=== PATIENT | male | born 1945 | race Caucasian/White ===

== ENCOUNTER → 2018-09-23 | Outpatient (CLI) | payer MEDICARE, BC ==
--- NOTE | 2018-09-23 16:24 | CT ---
EXAMINATION TYPE: CT abdomen pelvis wo con DATE OF EXAM: 09/23/2018 COMPARISON: None HISTORY: Hematuria today without other symptoms CT DLP: 660.9 mGycm Automated exposure control for dose reduction was used. TECHNIQUE: Helical acquisition of images was performed from the lung bases through the pelvis. FINDINGS: Lack of intravenous and oral contrast limit evaluation of the hollow and solid viscera. LUNG BASES: Left basilar calcified pleural plaque is seen. LIVER/GB: Unremarkable unenhanced morphology. The bladder is contracted with no cholelithiasis. PANCREAS: No significant abnormality is seen. SPLEEN: No significant abnormality is seen. ADRENALS: No significant abnormality is seen. KIDNEYS: There is an obstructing left ureteropelvic junction 5 mm calculus resulting in minimal left hydronephrosis. There are nonobstructing 3 mm calculi within the left midpole (2 in number. On the ri ght there is an obstructing 2 mm right upper pole calculus and 1 mm right midpole calculus. 2 small t o accurately characterize exophytic probable right renal cyst is seen. FREE AIR: No free air is visualized ADENOPATHY: No greater than 1 cm short axis lymph nodes are seen within the abdomen or pelvis. REPRODUCTIVE ORGANS: Prostate gland is heterogenous containing central zone calcifications. URINARY BLADDER: No calculi within the decompressed urinary bladder. OSSEOUS STRUCTURES: Multilevel degenerative changes of the spine are mild. BOWEL: No dilated large or small bowel. Appendix is air-filled and within normal limits. OTHER: Moderate atherosclerosis is noted of the abdominal aorta and its branches. IMPRESSION: 5 MM OBSTRUCTING CALCULUS AT THE LEFT URETEROPELVIC JUNCTION CREATING MINIMAL LEFT HYDRONEPHROSIS. BI LATERAL NONOBSTRUCTING CALCULI ARE ALSO SEEN DESCRIBED ABOVE.
== END ==
LOC: RADCTMAIN 15:44
PROVIDERS: ATTEND Family Medicine
DX: N13.5 Crossing vessel and stricture of ureter without hydronephrosis (principal)
CPT/HCPCS: 74176

== ENCOUNTER → 2019-04-18 | Outpatient (CLI) | payer MEDICARE, BC ==
[2019-04-18 10:27] LABS: Anion Gap 8 mmol/L; Blood Urea Nitrogen 24 mg/dL (9-20); Carbon Dioxide 26 mmol/L (22-30); Chloride 106 mmol/L (98-107); Potassium 4.2 mmol/L (3.5-5.1); Sodium 140 mmol/L (137-145)
[2019-04-18 10:36] LABS: HCT 42.3 % (39.0-53.0); HGB 13.6 gm/dL (13.0-17.5); MCH 29.3 pg (25.0-35.0); MCHC 32.2 g/dL (31.0-37.0); Mean Platelet Volume 8.5; Platelet Count 149 k/uL (150-450); RBC 4.65 m/uL (4.30-5.90); RDW 14.4 % (11.5-15.5); WBC 4.8 k/uL (3.8-10.6)
== END ==
LOC: LABPAT 09:08
PROVIDERS: ATTEND Internal Medicine Interventional Cardiology
DX: Z01.812 Encounter for preprocedural laboratory examination (principal); I25.10 Atherosclerotic heart disease of native coronary artery without angina pectoris
CPT/HCPCS: 80051; 82565; 84520; 85027

== ENCOUNTER → 2019-05-05 | Day surgery (SDC) | payer MEDICARE, BC ==
[2019-04-26 12:23] VITALS: BMI 28.7
[~2019-05-05] MED LIST: ALPRAZolam 0.25 MG TAB PO PRN; ASPIRIN 325 MG TAB PO ONE; BENZOCAINE SPRAY 1 CAN MUCOUS MEM ONE; IOPAMIDOL-370 125ML BTL INJ ONE; IV FLUID CONTINUATION 1,000 ML IV ONE; LIDOCAINE 1% INJ 10MG/ML (20 ML MDV) SQ ONE; MIDAZOLAM (PF) 2 MG/2 ML VIAL IV ONE; SODIUM CHLORIDE 0.9% 1,000 ML IV SCH; SODIUM CHLORIDE 0.9% 1,000 ML in EMPTY BAG 1 BAG IV ONE; fentaNYL (PF) 50 MCG/ML 2 ML AMP ONE
[2019-05-05 06:56] VITALS: TEMP 97.8
[2019-05-05 07:40] VITALS: RESP 14
[2019-05-05] MEDS: fentaNYL (PF) 50 MCG/ML 2 ML AMP IV ONE ×2 (07:49→07:53)
[2019-05-05] MEDS: MIDAZOLAM (PF) 2 MG/2 ML VIAL IV ONE ×2 (07:53→07:58)
[2019-05-05] MEDS: VERAPAMIL SYRINGE (5 MG/10 ML) INTRAARTER ONE ×2 (08:42→08:55)
--- NOTE | 2019-05-05 09:38 | ECHOT ---
TRANSESOPHAGEAL ECHOCARDIOGRAM DATE OF SERVICE: 05/05/2019 PERFORMING PHYSICIAN: Erick Wiseman MD. PROCEDURE PERFORMED: Transesophageal echocardiogram. INDICATION: Mitral regurgitation. PROCEDURE DESCRIPTION: After obtaining an informed consent, explaining the procedure, benefits, risks, complications and alternatives, the patient was brought to the transesophageal echocardiogram suite. A pulse oximetry and heart rate monitors were attached to the patient prior to the procedure. The patient's throat was sprayed using lidocaine locally. Following that, the patient was turned into left lateral position. A bite guard was placed and the patient was then sedated with the above doses of Versed and fentanyl in divided doses. Following that, the transesophageal echocardiogram probe was advanced through the bite guard into the mid esophagus where 2-D echocardiogram images as well as color Doppler images of various cardiac structures were obtained. We evaluated the interatrial septum using 2-D echocardiogram, color Doppler, and contrast study. The procedure was completed. There were no complications. FINDINGS: The left ventricular dimension and systolic function appeared to be within normal limits with EF of 60%. The right ventricle appeared to be of normal size and function. The left atrium appeared to be mildly dilated. The left atrial appendage appeared to be free from any thrombus. The interatrial septum appears to be intact with color-flow Doppler. The aortic valve is trileaflet valve without stenosis or regurgitation. The mitral valve seems to be mildly thickened with moderate to severe MR. Normal tricuspid valve and pulmonic valve. CONCLUSION: 1. Normal left ventricular dimension and systolic function. 2. Normal right ventricular dimension and systolic function. 3. Intact interatrial septum by color-flow Doppler. 4. Normal left atrial appendage without any evidence of thrombus. 5. Thickened mitral valve leaflets with moderate to severe mitral regurgitation. 6. Trileaflet aortic valve without stenosis or regurgitation. 7. Normal tricuspid valve and pulmonic valve. 8. No evidence of pericardial effusion. MMODL / IJN: [id number] /
--- NOTE | 2019-05-05 10:23 | CC ---
CARDIAC CATHETERIZATION REPORT DATE OF SERVICE: 05/05/2019 PERFORMING PHYSICIAN: Erick Wiseman MD, Lens Blank Gauger. PROCEDURE PERFORMED: 1. Selective right and left coronary angiogram. 2. Left heart catheterization. 3. Left ventriculography. INDICATION: This is a pleasant 73-year-old gentleman with hypertension and dyslipidemia and history of mitral regurgitation was experiencing symptoms of feeling tired and fatigued and short of breath lately. He was concerned about severe underlying coronary artery disease and also he was concerned about the severity of mitral regurgitation. Because of that, he was scheduled today to undergo a heart catheterization as well as transesophageal echocardiogram. COMPLICATION: None. LEVEL OF SEDATION: Moderate with sedation length of 17 minutes. PROCEDURE DESCRIPTION: After obtaining an informed consent, the patient was brought to the cardiac cath lab manager. The right radial artery was cannulated using micropuncture technique, the micropuncture wire passed easily, then I placed a 6-Occitan sheath in the right radial artery. After that, I did selective right and left coronary angiogram using JR4 and JL3.5 catheters. Left heart catheterization and left ventriculography were performed using the 6-Occitan pigtail catheter. The procedure was completed without any complication. SELECTIVE CORONARY ANGIOGRAM: 1. The right coronary artery is a moderate caliber vessel and it is a codominant vessel. The right coronary artery appeared to be angiographically normal. 2. The left main is angiographically normal. It bifurcates into the left circumflex and left anterior descending artery. 3. The left circumflex appeared to have mild disease only in the midportion. Proximally it gives rise into a large OM branch which appeared to be angiographically normal. It distally bifurcates into PDA and PLV branches, both appear to be angiographically normal. 4. The LAD, the proximal LAD appeared to have mild disease only. It gives rise into the first diagonal branch which has a lesion appeared to be in the range of 60% to 70%. The diagonal is about 2 mm in diameter. The mid and distal LAD appeared to be angiographically normal and the LAD in the midportion gives rise into a second diagonal branch which seems to be angiographically normal. HEMODYNAMICS: The left ventricular end-diastolic pressure was about 10 mmHg without significant gradient across the aortic valve. Left ventriculography was performed in the MCCORMICK projection and using a power injection. The left ventricular systolic function appeared to be within normal limits with 3+ MR. CONCLUSION: 1. Intermediate disease involving the proximal left anterior descending artery, appeared to be in the range of 50%. There is intermediate to severe disease involving the first diagonal branch of the left anterior descending artery as well. The disease appeared to be in the range of 60% to 70%. 2. Mild disease involving the left circumflex coronary artery. 3. Normal right coronary artery. 4. 3+ mitral regurgitation. POSTPROCEDURE MANAGEMENT: 1. I would recommend to continue the current medical regimen. 2. If the patient continues to be symptomatic, I would advise doing either myocardial perfusion imaging to assess for ischemia in the anterolateral wall or FFR of the LAD and PCI of the diagonal. 3. A 24 hour Holter monitor. The patient was bradycardic throughout the procedure. 4. Follow up with the patient. RICA / JANINAN: [id number] /
[2019-05-05 14:15] VITALS: BP 152/75; PULSE 56
== END ==
LOC: CATHCVL 06:27
PROVIDERS: ATTEND Internal Medicine Interventional Cardiology
DX: I25.10 Atherosclerotic heart disease of native coronary artery without angina pectoris (principal); I10 Essential (primary) hypertension; I34.0 Nonrheumatic mitral (valve) insufficiency; E78.5 Hyperlipidemia, unspecified; E78.00 Pure hypercholesterolemia, unspecified; Z79.82 Long term (current) use of aspirin; Z79.899 Other long term (current) drug therapy; Z88.0 Allergy status to penicillin
CPT/HCPCS: 93312; 93320; 93325; 93458; C1769; C1894; J2001; J3010; J1644; Q9967; J2250

== ENCOUNTER 2019-12-17 20:44 | Emergency (ER) | payer MEDICARE, BC ==
[2019-12-17 20:57] VITALS: PULSE 69; TEMP 98
--- NOTE | 2019-12-17 21:23 | ED ---
Chest Pain HPI - General Chief Complaint: Chest Pain Stated Complaint: Chest Pain-heart pt Time Seen by Provider: 12/17/19 21:23 Source: patient Mode of arrival: ambulatory Limitations: no limitations - History of Present Illness Initial Comments: Rachana is a pleasant 74-year-old gentleman who presents to the ER today for evaluation of palpitations. Patient states that approximately 2 months ago he had an open mitral valve repair and in the immediate postoperative period experience some atrial flutter. This resolved and he was discharged home only on his usual metoprolol. Patient states that he's been doing quite well in the postoperative period, he walks nearly 12 miles a day never experiences chest pain palpitations shortness of breath chest pressure or lightheadedness while walking. He states that this evening he was relaxing when he began to feel a fluttering in his chest, he describes it as feeling like his heart was skipping beats. He was concerned he maybe having an episode of atrial flutter so he came to the ER for evaluation. Patient denies any chest pain, pressure, shortness of breath, lightheadedness or other concerning symptoms while he was having the palpitations. He reports that they have resolved prior to being evaluated. Patient has undergone multiple cardiac workups in the past including a cardiac catheterization less than one month prior to his mitral valve repair, he has no known history of coronary artery disease, no stents, on his last cath he was told there is minimal narrowing and no indication for stenting at that time. - Related Data Home Medications Medication Instructions Recorded Confirmed Aspirin 81 mg PO DAILY 04/26/19 05/05/19 Atorvastatin [Lipitor] 20 mg PO HS 04/26/19 05/05/19 Escitalopram [Lexapro] 10 mg PO DAILY 04/26/19 05/05/19 amLODIPine [Norvasc] 10 mg PO DAILY 04/26/19 05/05/19 ALPRAZolam [Xanax] 0.25 mg PO BID PRN 05/05/19 05/05/19 Allergies Allergy/AdvReac Type Severity Reaction Status Date / Time Penicillins Allergy Unknown Verified 12/17/19 20:57 Childhood Review of Systems ROS Statement: Those systems with pertinent positive or pertinent negative responses have been documented in the HPI. ROS Other: All systems not noted in ROS Statement are negative. EKG Findings - EKG Comments: EKG Findings:: EKG was obtained due to complaint of palpitations, EKG was obtained at 2109, rate is 68 rhythm is sinus, normal axis, normal intervals, ME 174, care is 84, QTC is 435. There are no acute ST elevations or depressions there is no evidence of acute ischemia or infarction. Past Medical History Past Medical History: Chest Pain / Angina, Hyperlipidemia, Hypertension Additional Past Medical History / Comment(s): on antibiotics for infected tooth- just had oral surg., told leaky heart valve, hx. kidney stones History of Any Multi-Drug Resistant Organisms: None Reported Past Surgical History: Heart Catheterization, Hernia Repair Additional Past Surgical History / Comment(s): cyst removed right wrist, repair umbilical hernia, lithotripsy, cataract removed left eye Past Anesthesia/Blood Transfusion Reactions: No Reported Reaction Past Psychological History: No Psychological Hx Reported Smoking Status: Never smoker - Past Family History Mother Family Medical History: No Reported History General Exam - General Exam Comments Initial Comments: Physical Exam GENERAL: Patient is well-developed and well-nourished. Patient is nontoxic and well- hydrated and is in no distress. HENT: Normocephalic, Atraumatic. EYES: PERRL, EOMI PULMONARY: Unlabored respirations. No audible rales rhonchi or wheezing was noted. CARDIOVASCULAR: There is a regular rate and rhythm without any murmurs gallops or rubs. ABDOMEN: Soft and nontender with normal bowel sounds. SKIN: Skin is clear with no lesions or rashes and otherwise unremarkable. : Deferred NEUROLOGIC: Patient is alert and oriented x3. Moving all extremities spontaneously MUSCULOSKELETAL: Normal extremities with adequate strength and full range of motion. No lower extremity swelling or edema. No calf tenderness. PSYCHIATRIC: Normal psychiatric evaluation. Limitations: no limitations Course Vital Signs 12/17/19 20:53 Temperature 98.0 F Pulse Rate 69 Respiratory 20 Rate Blood Pressure 136/93 O2 Sat by Pulse 97 Oximetry Chest Pain MDM - MDM She was seen and evaluated history is obtained from the patient and at bedside This is a 74-year-old gentleman no history of CAD, history of postoperative atrial flutter presenting with palpitations concerned that he may be in atrial flutter. EKG is nonischemic EKG is sinus rhythm. Labs were obtained, no significant electrolytes derangements. Troponin and BNP not elevated. At this time patient is comfortable with the plan for discharge home and outpatient follow-up with cardio. All questions pertaining care were answered return parameters were discussed patient was discharged home in stable condition. Disposition Clinical Impression: Palpitations with regular cardiac rhythm Disposition: HOME SELF-CARE Condition: Stable Instructions (If sedation given, give patient instructions): Heart Palpitations (DC) Additional Instructions: Continue taking her medications as prescribed, continue to avoid caffeine and chocolate as these may worsen palpitations. Return to the ER if he have any worsening palpitations develop any chest pain, chest pressure, shortness of breath or any new or concerning symptoms. Primary care doctor and her packager or packer and weigher for reevaluation this week. Is patient prescribed a controlled substance at d/c from ED?: No Referrals: Kezia Little III, MD [Primary Care Provider] - 1-2 days
[2019-12-17 21:38] LABS: Basophils # (A) 0.1 k/uL (0-0.2); Basophils % (A) 1 %; Eosinophils # (A) 0.2 k/uL (0-0.7); Eosinophils % (A) 3 %; HCT 41.7 % (39.0-53.0); HGB 13.3 gm/dL (13.0-17.5); Lymphocytes # (A) 1.6 k/uL (1.0-4.8); Lymphocytes % (A) 32 %; MCH 29.7 pg (25.0-35.0); MCHC 31.8 g/dL (31.0-37.0); MCV 93.3 fL (80.0-100.0); Mean Platelet Volume 8.3; Monocytes # (A) 0.3 k/uL (0-1.0); Monocytes % (A) 5 %; Neutrophils # (A) 2.6 k/uL (1.3-7.7); Neutrophils % (A) 54 %; Platelet Count 136 k/uL (150-450); RBC 4.47 m/uL (4.30-5.90); RDW 14.4 % (11.5-15.5); WBC 4.8 k/uL (3.8-10.6)
--- NOTE | 2019-12-17 21:47 | XR ---
EXAMINATION TYPE: XR chest 2V DATE OF EXAM: 12/17/2019 COMPARISON: 07/09/2010 HISTORY: Chest pain TECHNIQUE: 2 views FINDINGS: Heart and mediastinum are normal. Lungs are clear. Diaphragm is normal. There are sternal w ires. Bony thorax is intact. IMPRESSION: No active cardiopulmonary disease. Normal heart. No change.
[2019-12-17 22:08] LABS: ALT 22 U/L (4-49); AST 32 U/L (17-59); African American GFR (CKD) >90 (>60 ml/min/1.73 sqM); Albumin 4.1 g/dL (3.5-5.0); Alkaline Phosphatase 132 U/L (38-126); Anion Gap 8 mmol/L; Blood Urea Nitrogen 27 mg/dL (9-20); Carbon Dioxide 26 mmol/L (22-30); Chloride 104 mmol/L (98-107); Glucose 144 mg/dL (74-99); Magnesium 1.8 mg/dL (1.6-2.3); Non-African American GFR(CKD) 81 (>60 ml/min/1.73 sqM); Potassium 4.3 mmol/L (3.5-5.1); Sodium 138 mmol/L (137-145); Total Bilirubin 0.5 mg/dL (0.2-1.3); Total Protein 6.8 g/dL (6.3-8.2)
[2019-12-17 22:19] LABS: Partial Thromboplastin Time 22.5 sec (22.0-30.0); Prothrombin Time 10.2 sec (9.0-12.0)
[2019-12-17 22:44] VITALS: BP 121/86; RESP 14
== END 2019-12-17 22:54 | disposition home or self-care (01) ==
LOC: EC 20:44
DX: R00.2 Palpitations (principal); R07.9 Chest pain, unspecified; E78.5 Hyperlipidemia, unspecified; I10 Essential (primary) hypertension; I48.92 Unspecified atrial flutter; I05.9 Rheumatic mitral valve disease, unspecified; Z95.818 Presence of other cardiac implants and grafts; Z98.890 Other specified postprocedural states; Z79.82 Long term (current) use of aspirin; Z79.899 Other long term (current) drug therapy; Z88.0 Allergy status to penicillin
CPT/HCPCS: 36415; 71046; 80053; 83735; 83880; 84484; 85025; 85610; 85730; 93005; 99285

== ENCOUNTER 2020-11-12 09:17 | Day surgery (SDC) | payer MEDICARE, BC ==
[2020-11-08 14:42] VITALS: BMI 29.2
[~2020-11-12 09:17] MED LIST changes: +ALPRAZolam 0.5 MG TAB PO PRN; +ATORVASTATIN 80 MG TAB PO ONE; -BENZOCAINE SPRAY 1 CAN MUCOUS MEM ONE; -IOPAMIDOL-370 125ML BTL INJ ONE; -IV FLUID CONTINUATION 1,000 ML IV ONE; -LIDOCAINE 1% INJ 10MG/ML (20 ML MDV) SQ ONE; -MIDAZOLAM (PF) 2 MG/2 ML VIAL IV ONE; +NITROGLYCERIN SL TABS 0.4 MG TAB SUBLINGUAL PRN; -SODIUM CHLORIDE 0.9% 1,000 ML IV SCH; -fentaNYL (PF) 50 MCG/ML 2 ML AMP ONE
[2020-11-12 09:47] VITALS: RESP 18; TEMP 97.9
[2020-11-12] MEDS ORDERED: LIDOCAINE 1% INJ 10MG/ML (20 ML MDV) ONE (09:58)
[2020-11-12] MEDS ORDERED: VERAPAMIL 2.5 MG/ML 2 ML AMP ONE (09:59)
[2020-11-12] MEDS ORDERED: MIDAZOLAM 2 MG/2 ML VIAL IVP ONE (10:08)
[2020-11-12] MEDS ORDERED: LIDOCAINE 1% INJ 10MG/ML (20 ML MDV) SQ ONE (10:10)
[2020-11-12] MEDS: VERAPAMIL SYRINGE (5 MG/10 ML) INTRAARTER ONE ×2 (10:11→10:27)
[2020-11-12] MEDS ORDERED: IOPAMIDOL-370 125ML BTL INJ ONE (10:29)
[2020-11-12] MEDS ORDERED: RX INFO: IV CONTRAST WAS GIVEN 1 EACH MISC MISCELLANE PRN (10:31)
[2020-11-12] MEDS ORDERED: SODIUM CHLORIDE 0.9% 1,000 ML IV SCH (10:45)
--- NOTE | 2020-11-12 14:46 | CC ---
CARDIAC CATHETERIZATION REPORT DATE OF SERVICE: November 12, 2020 PERFORMING PHYSICIAN: Erick Wiseman MD. PROCEDURE PERFORMED: 1. Selective right and left coronary angiogram. 2. Left heart catheterization. INDICATION: This is a pleasant 75-year-old gentleman with coronary artery disease as well as hypertension and dyslipidemia who was experiencing symptoms of chest discomfort and underwent myocardial perfusion imaging stress test and that revealed lateral ischemia. Because of that, a heart catheterization was advised. APPROACH: Right radial artery. COMPLICATION: None. LEVEL OF SEDATION: Moderate with sedation length of 13 minutes. PROCEDURE DESCRIPTION: After obtaining an informed consent, the patient was brought to cardiac slab lifting engineer. The right radial artery was cannulated using micropuncture technique and a micropuncture wire passed easily then I placed a 6-Angolan sheath in the right radial artery and subsequently I gave the patient 2 mg of verapamil IA. Heparin was not given because of the low platelet count. Selective right and left coronary angiogram performed with JR4 and JL3.5 catheters. Left heart catheterization was performed using 5-Angolan pigtail catheter. The procedure was completed without any complication. SELECTIVE CORONARY ANGIOGRAM: 1. The right coronary artery is a medium caliber vessel and is a dominant vessel. The RCA is angiographically normal. 2. The left main is angiographically normal. It bifurcates into LCX and LAD. 3. The left circumflex is a large caliber vessel. It is a nondominant vessel. The proximal LCX is angiographically normal and gives rise into OM1 which appeared to be angiographically normal. The circumflex in the midportion appeared to be normal. Distally, it is normal. It bifurcates to PDA and PLV branches both appeared to be angiographically normal. 4. The LAD: The proximal LAD appeared to have mild disease only. It gives rise into a medium-sized diagonal branch which has a lesion in the midportion appeared to be in the range of 60%, seems to be unchanged compared to before. The mid LAD is normal and gives rise into second diagonal branch which seems to be normal and the LAD distally appeared to be normal. HEMODYNAMICS: The LVEDP was 10 to 12 mmHg without significant gradient across the aortic valve. CONCLUSION: Intermediate lesion involving the first diagonal branch of the left anterior descending artery, appeared to be in the range of 60%. POSTPROCEDURE MANAGEMENT: Consider PCI of that diagonal if the patient continues to be symptomatic on maximized medical treatment including oral nitrate. MMODL / IJN: [id number] /
[2020-11-12 17:29] VITALS: BP 128/72; PULSE 64
== END 2020-11-12 15:33 | disposition home or self-care (01) ==
LOC: CATHCVL 09:17
PROVIDERS: ATTEND Internal Medicine Interventional Cardiology
DX: I25.110 Atherosclerotic heart disease of native coronary artery with unstable angina pectoris (principal); R07.89 Other chest pain; R94.39 Abnormal result of other cardiovascular function study; E78.00 Pure hypercholesterolemia, unspecified; I10 Essential (primary) hypertension; E78.5 Hyperlipidemia, unspecified; R53.83 Other fatigue; E66.3 Overweight; Z98.890 Other specified postprocedural states; Z86.79 Personal history of other diseases of the circulatory system; Z87.898 Personal history of other specified conditions; Z79.82 Long term (current) use of aspirin; Z79.899 Other long term (current) drug therapy; Z79.52 Long term (current) use of systemic steroids; Z88.0 Allergy status to penicillin; Z68.29 Body mass index [BMI] 29.0-29.9, adult
CPT/HCPCS: 93458; C1769; C1894; J2250; J2001; Q9967

== ENCOUNTER 2021-02-20 06:28 | Day surgery (SDC) | payer MEDICARE, BC ==
[2021-02-20] MEDS ORDERED: ALPRAZolam 0.25 MG TAB PO PRN ×2 (06:38→09:19)
[2021-02-20] MEDS ORDERED: ATORVASTATIN 80 MG TAB PO STA (06:38)
[2021-02-20] MEDS ORDERED: ALPRAZolam 0.5 MG TAB PO PRN (06:38)
[2021-02-20] MEDS ORDERED: NITROGLYCERIN SL TABS 0.4 MG TAB SUBLINGUAL PRN ×2 (06:38→09:22)
[2021-02-20] MEDS ORDERED: SODIUM CHLORIDE 0.9% 1,000 ML in EMPTY BAG 1 BAG IV ONE (06:38)
[2021-02-20] MEDS ORDERED: ASPIRIN 325 MG TAB PO STA (06:38)
[2021-02-20] MEDS ORDERED: SODIUM CHLORIDE 0.9% 1,000 ML IV ONE (06:42)
[2021-02-20] MEDS ORDERED: HEPARIN SODIUM,PORCINE 10,000 UNIT in SODIUM CHLORIDE 0.9% 1,000 ML IRRIGATION PRN (07:00)
[2021-02-20] MEDS ORDERED: HEPARIN SODIUM,PORCINE 2,500 UNIT in SODIUM CHLORIDE 0.9% 250 ML IRRIGATION PRN (07:00)
[2021-02-20 07:19] LABS: Basophils % (A) 1 %; Eosinophils # (A) 0.1 k/uL (0-0.7); Eosinophils % (A) 2 %; HCT 43.6 % (39.0-53.0); HGB 14.9 gm/dL (13.0-17.5); Lymphocytes # (A) 1.9 k/uL (1.0-4.8); Lymphocytes % (A) 36 %; MCH 31.7 pg (25.0-35.0); MCV 93.1 fL (80.0-100.0); Mean Platelet Volume 8.1; Monocytes # (A) 0.3 k/uL (0-1.0); Monocytes % (A) 6 %; Neutrophils # (A) 2.8 k/uL (1.3-7.7); Neutrophils % (A) 52 %; Platelet Count 140 k/uL (150-450); RBC 4.69 m/uL (4.30-5.90); RDW 13.4 % (11.5-15.5); WBC 5.3 k/uL (3.8-10.6)
[2021-02-20 07:32] LABS: Potassium 4.3 mmol/L (3.5-5.1)
[2021-02-20] MEDS ORDERED: MIDAZOLAM 2 MG/2 ML VIAL IV ONE (07:57)
[2021-02-20] MEDS ORDERED: LIDOCAINE 1% INJ 10MG/ML (20 ML MDV) SQ ONE (08:01)
[2021-02-20] MEDS ORDERED: HEPARIN SODIUM 1,000 UN/ML (10ML VL) IV ONE (08:02)
[2021-02-20] MEDS ORDERED: VERAPAMIL SYRINGE (5 MG/10 ML) INTRAARTER ONE (08:02)
[2021-02-20] MEDS ORDERED: NITROGLYCERIN 1000MCG/10ML SYRINGE INTRACORON ONE (08:17)
[2021-02-20] MEDS: NITROGLYCERIN 1000MCG/10ML SYRINGE INTRACORON ONE ×2 (08:46→09:08)
[2021-02-20] MEDS ORDERED: IOPAMIDOL-370 125ML BTL INJ ONE (08:56)
[2021-02-20] MEDS ORDERED: IOPAMIDOL-370 100ML BTL INJ ONE (09:08)
[2021-02-20] MEDS ORDERED: CLOPIDOGREL 75 MG TAB PO ONE (09:09)
[2021-02-20] MEDS ORDERED: MAG HYDROX/AL HYDROX/SIMETH 30 ML CUP PO PRN (09:22)
[2021-02-20] MEDS ORDERED: RX INFO: IV CONTRAST WAS GIVEN 1 EACH MISC MISCELLANE PRN (09:22)
[2021-02-20] MEDS ORDERED: ZOLPIDEM 5 MG TAB PO PRN (09:22)
[2021-02-20] MEDS ORDERED: ATROPINE SULFATE 0.1 MG/ML 10ML SYRINGE IV PRN (09:22)
[2021-02-20] MEDS ORDERED: SODIUM CHLORIDE 0.9% 1,000 ML IV SCH (09:30)
--- NOTE | 2021-02-20 11:07 | LTR ---
February 20, 2021 Re: Angel Judd Dear Dr. Little: MrDann Whaley underwent today successful stenting of the first diagonal branch of the left anterior descending artery with good angiographic results and without any complication. I want to thank you for allowing me to participate in his care and please do not hesitate to call if you have any questions or concerns. Sincerely, MD RICA Regna / JARON: [id number] /
--- NOTE | 2021-02-20 11:07 | PTCA ---
PERCUTANEOUSTRANS CORORONARY ANGIOGRAPHY DATE OF SERVICE: February 20, 2021 PERFORMING PHYSICIAN: Erick Wiseman MD. PROCEDURE PERFORMED: Successful stenting of a medium-sized first diagonal branch of the left anterior descending artery using 2.0 x 15 mm [place] drug-eluting stent with an excellent angiographic results and reduction of stenosis from 80% to 0%. INDICATION: This is a 75-year-old gentleman with valvular heart disease and coronary artery disease who was experiencing symptoms of chest discomfort by the end of 2019. At that point, he underwent myocardial perfusion imaging stress test and that showed small lateral ischemia. Because he continues to be symptomatic, a heart catheterization was advised. The heart catheterization revealed severe lesion involving the first diagonal branch of the left anterior descending artery, but because it was a medium-sized diagonal, I decided to treat him medically. The patient continues to have symptoms of chest discomfort. He underwent a heart catheterization again and that showed that the lesion was in the intermediate to severe range only. I continued the conservative medical approach. But he was seen in the office recently where the symptoms of chest discomfort has progressed on him. Because of that I decided to pursue with an intervention on the diagonal. APPROACH: Right radial artery. COMPLICATION: None. LEVEL OF SEDATION: Moderate with sedation length of 71 minutes. PROCEDURE DESCRIPTION: After obtaining an informed consent, the patient was brought to the cardiac cardiac cath lab manager. The right radial artery was cannulated using micropuncture technique, the micropuncture wire passed easily then I placed a 6-Norwegian sheath at the right radial artery. At that point, I gave the patient 2 mg of verapamil IA and 10,000 units of heparin IV. At that point, I did engage the left main using a JL3.5 guiding catheter. I did wire the first diagonal branch using a run-through wire. Attempting balloon angioplasty using 2.0 x 12 mm was unsuccessful because the balloon did not cross the lesion. At that point, I did wire the diagonal using a jose wire and that was a Whisper wire. Attempting ballooning angioplasty with 1.5 mm was unsuccessful because the balloon did not cross the lesion and then I did try 1.0 balloon and that also was unsuccessful. At that point, the run-through wire came out and I pulled out completely. I decided to try the Guidezilla. With adjunctive use Guidezilla, I was able to advance 2.0 x 12 mm balloon to the diagonal branch where I did balloon angioplasty and subsequently I was able to deployed 2.0 x 15 mm Jhon[place] drug-eluting stent where the stent was positioned under fluoroscopic guidance and deployed under 16 atmospheres for 20 seconds. The following angiogram showed excellent angiographic results and the procedure was completed without any complication. POSTPROCEDURE MANAGEMENT: 1. Dual anti-platelet therapy. 2. Risk factor modifications. 3. Follow up with the patient. MMSUSANA / IJN: [id number] /
[2021-02-20 15:59] VITALS: BMI 29.9
[2021-02-20] MEDS ORDERED: ATORVASTATIN 20 MG TAB PO SCH (21:00)
[2021-02-21 06:15] LABS: Basophils % (A) 0 %; Eosinophils # (A) 0.1 k/uL (0-0.7); Eosinophils % (A) 2 %; HCT 40.5 % (39.0-53.0); Lymphocytes # (A) 1.6 k/uL (1.0-4.8); Lymphocytes % (A) 31 %; MCH 32.2 pg (25.0-35.0); MCHC 34.5 g/dL (31.0-37.0); MCV 93.4 fL (80.0-100.0); Mean Platelet Volume 8.6; Monocytes # (A) 0.3 k/uL (0-1.0); Monocytes % (A) 5 %; Neutrophils % (A) 58 %; Platelet Count 114 k/uL (150-450); RBC 4.34 m/uL (4.30-5.90); RDW 13.5 % (11.5-15.5); WBC 5.3 k/uL (3.8-10.6)
[2021-02-21 06:30] LABS: African American GFR (CKD) >90 (>60 ml/min/1.73 sqM); Anion Gap 6 mmol/L; Blood Urea Nitrogen 23 mg/dL (9-20); Calcium 8.7 mg/dL (8.4-10.2); Carbon Dioxide 25 mmol/L (22-30); Chloride 105 mmol/L (98-107); Glucose 92 mg/dL (74-99); Non-African American GFR(CKD) 78 (>60 ml/min/1.73 sqM); Potassium 4.4 mmol/L (3.5-5.1); Sodium 136 mmol/L (137-145)
[2021-02-21] MEDS ORDERED: ARTIFICIAL TEARS-HYPROMELLOSE DROPS 15 ML BTL BOTH EYES SCH (09:00)
[2021-02-21] MEDS ORDERED: ASPIRIN 81 MG PO SCH (09:00)
[2021-02-21] MEDS ORDERED: CLOPIDOGREL 75 MG TAB PO SCH (09:00)
[2021-02-21] MEDS ORDERED: ISOSORBIDE MONONITRATE ER 30 MG TAB.ER.24H PO SCH (09:00)
[2021-02-21] MEDS ORDERED: METOPROLOL SUCCINATE (ER) 25 MG TAB.ER.24H PO SCH (09:00)
[2021-02-21] MEDS ORDERED: ESCITALOPRAM 10 MG TAB PO SCH (09:00)
[2021-02-21] MEDS ORDERED: NON FORMULARY DRUG (Ubidecarenone [Co Q-10] 100 MG Capsule) PO SCH (09:00)
[2021-02-21 09:18] VITALS: BP 135/76; RESP 18; TEMP 97.7
[2021-02-21 09:24] VITALS: PULSE 57
--- NOTE | 2021-02-21 12:07 | DS ---
DISCHARGE SUMMARY ADMISSION DATE: February 20, 2021. DISCHARGE DATE: February 21, 2021 BRIEF HISTORY: This is a 75-year-old gentleman who underwent yesterday successful stenting of the diagonal branch of the LAD with good angiographic results and without any complication. He was seen this morning. The right radial site is soft and nontender with good pulse. The patient is going to be discharged home on dual anti-platelet therapy and I will see him in the office next week. MMSUSANA / JARON: [id number] /
== END 2021-02-21 10:40 | disposition home or self-care (01) ==
LOC: CATHCVL 06:28 → 6NMEDSUR 09:11 → CATHCVL 02-21 10:40
PROVIDERS: ATTEND Internal Medicine Interventional Cardiology
DX: I25.10 Atherosclerotic heart disease of native coronary artery without angina pectoris (principal); I10 Essential (primary) hypertension; E78.5 Hyperlipidemia, unspecified; Z95.2 Presence of prosthetic heart valve; Z88.0 Allergy status to penicillin; Z79.02 Long term (current) use of antithrombotics/antiplatelets; Z79.82 Long term (current) use of aspirin; Z79.899 Other long term (current) drug therapy
CPT/HCPCS: 80048 ×2; 85025 ×2; C9600; C1769 ×3; C1887 ×2; C1725 ×3; C1874; C1894; J2250; J2001; J1644; Q9967 ×2

== ENCOUNTER 2021-08-11 16:51 | Emergency (ER) | payer MEDICARE, BC ==
[2021-08-11 18:15] VITALS: BP 148/110; PULSE 73; RESP 16; TEMP 97.9
--- NOTE | 2021-08-11 18:17 | ED ---
Lower Extremity Injury HPI <Ani Henson - Last Filed: 08/11/21 18:14> <Luca Jean-Baptiste - Last Filed: 08/11/21 22:40> - General Chief Complaint: Extremity Injury, Lower Stated Complaint: L big toe injury Time Seen by Provider: 08/11/21 18:15 - History of Present Illness Initial Comments: Patient is a 75-year-old male presenting to the emergency Department with complaints of injury to his left toenail about 2 hours prior to arrival. Patient states he stubbed his toe and the nail came off, hanging only by the cuticle, he is having trouble controlling the bleeding, does take Plavix and aspirin. Patient states he went to urgent care who sent him into the ER for further evaluation. (Ani Henson) - Related Data Home Medications Medication Instructions Recorded Confirmed Aspirin 81 mg PO DAILY 04/26/19 02/20/21 Atorvastatin [Lipitor] 20 mg PO HS 04/26/19 02/20/21 Escitalopram [Lexapro] 10 mg PO DAILY 04/26/19 02/20/21 ALPRAZolam [Xanax] 0.25 mg PO BID PRN 05/05/19 02/20/21 Carboxymethylcellulose Sodium 1 dropper BOTH EYES DAILY 11/08/20 02/20/21 [Restore Plus] Metoprolol Succinate (ER) [Toprol 25 mg PO DAILY 11/08/20 02/20/21 XL] Isosorbide Mononitrate [Isosorbide 30 mg PO DAILY 02/19/21 02/20/21 Mononitrate ER] Ubidecarenone [Co Q-10] 100 mg PO DAILY 02/19/21 02/20/21 Previous Rx's Medication Instructions Recorded Clopidogrel [Plavix] 75 mg PO DAILY #90 tab 02/21/21 Allergies Allergy/AdvReac Type Severity Reaction Status Date / Time Penicillins Allergy Unknown Verified 08/11/21 18:11 Childhood Review of Systems ROS Other: All systems not noted in ROS Statement are negative. <Ani Henson - Last Filed: 08/11/21 18:14> ROS Other: All systems not noted in ROS Statement are negative. <Luca Jean-Baptiste - Last Filed: 08/11/21 22:40> ROS Statement: Those systems with pertinent positive or pertinent negative responses have been documented in the HPI. Past Medical History Past Medical History: Chest Pain / Angina, Hyperlipidemia, Hypertension Additional Past Medical History / Comment(s): hx leaky heart valve, hx. kidney stones History of Any Multi-Drug Resistant Organisms: None Reported Past Surgical History: Cardiac Valve Replacement, Heart Catheterization, Hernia Repair Additional Past Surgical History / Comment(s): cyst removed right wrist, repair umbilical hernia, lithotripsy, cataract removed left eye,mitral valve repair Past Anesthesia/Blood Transfusion Reactions: No Reported Reaction Past Psychological History: Anxiety Smoking Status: Never smoker Past Alcohol Use History: Occasional Past Drug Use History: None Reported - Past Family History Mother Family Medical History: Cancer Additional Family Medical History / Comment(s): esophageal Father Family Medical History: Cancer Additional Family Medical History / Comment(s): asbestos <Ani Henson - Last Filed: 08/11/21 18:14> General Exam Limitations: no limitations General appearance: alert, in no apparent distress Head exam: Present: atraumatic Eye exam: Present: normal appearance <Ani Henson - Last Filed: 08/11/21 18:14> <Luca Jean-Baptiste - Last Filed: 08/11/21 22:40> - General Exam Comments Initial Comments: Constitutional: Awake alert Appears comfortable Head: Normocephalic atraumatic Eyes: no conjunctival injection No scleral icterus EOMI Neck: No JVD Supple Heart: Regular rate rhythm normal S1-S2 no murmurs Lungs: Clear to auscultation bilaterally No wheezing No rales Abdomen: Soft nondistended nontender Extremities: Non edematous DP pulses intact Radial pulses intact, left big toe with almost complete nail avulsion with a clot overlying the nail bed Neuro: A&Ox3 No focal neurologic deficits Psych: Appropriate mood and affect (Luca Jean-Baptiste) Course Vital Signs 08/11/21 18:11 Temperature 97.9 F Pulse Rate 73 Respiratory 16 Rate Blood Pressure 148/110 O2 Sat by Pulse 97 Oximetry Medical Decision Making <Luca Jean-Baptiste - Last Filed: 08/11/21 22:40> - Medical Decision Making This is a 75-year-old male who presents emergency department for nail avulsion. The patient's nail was almost completely avulsed the timing at the emergency department. He requested that the nail just be removed. He's had this done in the past and he states that his nail is currently disfigured the cousins the injury he had previously. He is not requesting any further treatment to be done. I did advise him that a lot of times we will place some type of splint in the place of the nail the nail starts to grow back however he stated he did not want this performed. I did not note any nail bed lacerations. The nail was removed after performing a digital block and the patient tolerated this well. It was wrapped with a pressure dressing. He was sent home with supplies to reapply the dressing if there is bleeding through the areas 1. Follow up closel y with his primary doctor return for any concerns. (Luca Jean-Baptiste) Disposition <Ani Henson - Last Filed: 08/11/21 18:14> Is patient prescribed a controlled substance at d/c from ED?: No <Luca Jean-Baptiste - Last Filed: 08/11/21 22:40> Clinical Impression: Nail avulsion, toe Disposition: HOME SELF-CARE Condition: Stable Instructions (If sedation given, give patient instructions): Nail Avulsion (ED) Referrals: Kezia Little III, MD [Primary Care Provider] - 1-2 days
[2021-08-11] MEDS ORDERED: LIDOCAINE 1% INJ 10MG/ML (20 ML MDV) SQ ONE (20:22)
== END 2021-08-11 21:35 | disposition home or self-care (01) ==
LOC: EC 16:51
DX: S91.202A Unspecified open wound of left great toe with damage to nail, initial encounter (principal); E78.5 Hyperlipidemia, unspecified; I10 Essential (primary) hypertension; Z88.0 Allergy status to penicillin; Z79.899 Other long term (current) drug therapy; Z79.82 Long term (current) use of aspirin; W22.8XXA Striking against or struck by other objects, initial encounter
CPT/HCPCS: 99283; 11730; J2001

== ENCOUNTER → 2023-11-29 | Outpatient (CLI) | payer MEDICARE, BC ==
[2023-11-30 03:27] LABS: Blood Urea Nitrogen 20.2 mg/dL (9.0-27.0); Carbon Dioxide 26.9 mmol/L (21.6-31.8); Chloride 104 mmol/L (96-109); Sodium 141 mmol/L (135-145)
[2023-11-30 04:14] LABS: HGB 13.4 g/dL (13.0-17.0); MCH 30.1 pg (27.0-32.0); MCHC 31.9 g/dL (32.0-37.0); MCV 94.4 FL (80.0-97.0); Mean Platelet Volume 11.6 FL (9.5-12.2); NRBC Per 100 WBC 0 X 10*3/uL (0.00-0.01); Platelet Count 147 X 10*3/uL (140-440); RBC 4.45 X 10*6/uL (4.40-5.60); RDW 14.5 % (11.5-14.5); WBC 5.88 X 10*3/uL (4.50-10.00)
== END | disposition home or self-care (01) ==
LOC: LABPAT 15:03
PROVIDERS: ATTEND Internal Medicine Interventional Cardiology
DX: Z01.812 Encounter for preprocedural laboratory examination (principal); R07.9 Chest pain, unspecified; R06.02 Shortness of breath
CPT/HCPCS: 80051; 82565; 84520; 85027

== ENCOUNTER 2023-12-14 07:38 | Day surgery (SDC) | payer MEDICARE, BC ==
[~2023-12-14 07:38] MED LIST changes: -ASPIRIN 325 MG TAB PO ONE; +ASPIRIN 325 MG TAB PO STA; -ATORVASTATIN 80 MG TAB PO ONE; -SODIUM CHLORIDE 0.9% 1,000 ML in EMPTY BAG 1 BAG IV ONE; +SODIUM CHLORIDE 0.9% 1,000 ML in EMPTY BAG 1 BAG IV SCH
[2023-12-14 08:15] VITALS: RESP 18; TEMP 97.6
[2023-12-14] MEDS ORDERED: VERAPAMIL 2.5 MG/ML 2 ML AMP ONE (09:00)
[2023-12-14] MEDS ORDERED: LIDOCAINE 1% INJ 10MG/ML (20 ML MDV) ONE (09:00)
[2023-12-14] MEDS ORDERED: HEPARIN SODIUM 1,000 UN/ML (10ML VL) ONE (09:00)
[2023-12-14] MEDS ORDERED: fentaNYL (PF) 50 MCG/ML 2 ML AMP ONE (09:38)
[2023-12-14] MEDS ORDERED: MIDAZOLAM 2 MG/2 ML VIAL IVP ONE (09:40)
[2023-12-14] MEDS ORDERED: fentaNYL (PF) 50 MCG/ML 2 ML AMP IVP ONE (09:40)
[2023-12-14] MEDS ORDERED: LIDOCAINE 1% INJ 10MG/ML (20 ML MDV) SQ ONE ×2 (09:40→09:43)
[2023-12-14] MEDS ORDERED: VERAPAMIL 2.5 MG/ML 4 ML VIAL INTRAARTER ONE (09:43)
[2023-12-14] MEDS ORDERED: VERAPAMIL SYRINGE (5 MG/10 ML) INTRAARTER ONE (09:43)
[2023-12-14] MEDS ORDERED: HEPARIN SODIUM 1,000 UN/ML (10ML VL) IVP ONE (09:44)
[2023-12-14] MEDS ORDERED: IOPAMIDOL-370 100ML BTL IVP ONE (10:03)
[2023-12-14] MEDS ORDERED: RX INFO: IV CONTRAST WAS GIVEN 1 EACH MISC MISCELLANE PRN (10:10)
--- NOTE | 2023-12-14 10:14 | P.PCN ---
Date of Procedure: 12/14/23 Operative Findings: CARDIAC CATHETERIZATION PERFORMING PHYSICIAN: Erick Wiseman MD, RPVI PROCEDURE PERFORMED: 1. Selective right and left coronary angiogram 2. Left heart catheterization 3. Ultrasound-guided access of the right radial artery 4. FFR of the LCx INDICATION: Shortness of breath and abnormal myocardial perfusion imaging stress test COMPLICATION: None APPROACH: Right radial artery LEVEL OF SEDATION: Moderate with a sedation length of 23 minutes PROCEDURE DESCRIPTION: After obtaining an informed consent, the patient was brought to cardiac sanitation laborer. Local anesthesia was performed using lidocaine subcutaneously. The right radial artery was cannulated using Seldinger technique, the guidewire passed easily, following that we advanced a 5-Welsh sheath dilator assembly, the wire and dilator were removed and sheath was flushed. Following that, 2 mg of verapamil along with 5000 unit heparin were given. Selective right and left coronary angiogram using a 6-Welsh JR4 and JL 3.5 catheters. The left heart catheterization was performed using the JL 3.5 catheter which cross the aortic valve. After that we decided to do one FFR of the left circumflex. After zeroing the Doppler wire and equalizing between the Doppler wire and guiding catheter which was JL 3.5 guiding catheter the left main was engaged in the left circumflex was wired and subsequently we did iFR and that came in to be 0.99. The procedure was completed there was no complication. SELECTIVE CORONARY ANGIOGRAM: The right coronary artery: Moderate caliber vessel and codominant vessel and appeared to be a ngiographically Left main: Is normal. Bifurcates into an LCx and LAD The left circumflex: Large caliber vessel and codominant vessel. Proximally gives rise into a large OM branch which has intermediate lesion was identified on the BHUTANESE cranial view and the lesion was seen in the range of 50%. Doppler wire measurements performed and came in to be nonischemic The left anterior descending artery: Large caliber vessel. Its angiographically normal. Gives rise into a large diagonal branch which has a stent and it was mild in-stent restenosis HEMODYNAMICS: The LVDP was about 4 mmHg was no significant gradient across aortic valve CONCLUSION: 1. Patent stent in the first diagonal 2. Intermediate lesion involving OM1 documented to be not flow-limiting by Doppler wire 3. Normal left-sided filling pressure POSTPROCEDURE MANAGEMENT: Medical treatment
[2023-12-14] MEDS ORDERED: SODIUM CHLORIDE 0.9% 1,000 ML IV SCH (10:15)
[2023-12-14 14:37] VITALS: BP 131/74; PULSE 63
== END 2023-12-14 15:12 | disposition home or self-care (01) ==
LOC: CATHCVL 07:38
PROVIDERS: ATTEND Internal Medicine Interventional Cardiology
DX: I25.10 Atherosclerotic heart disease of native coronary artery without angina pectoris (principal); I38 Endocarditis, valve unspecified; I10 Essential (primary) hypertension; E78.5 Hyperlipidemia, unspecified; Z88.0 Allergy status to penicillin; Z95.5 Presence of coronary angioplasty implant and graft; Z79.82 Long term (current) use of aspirin; Z79.899 Other long term (current) drug therapy
CPT/HCPCS: 93458; 93799; 76937; 99152; 99153; C1887; C1769 ×2; C1894; J2250; J2001; J3010; J1644; Q9967

== ENCOUNTER → 2023-12-29 | Outpatient (CLI) | payer MEDICARE, BC ==
--- NOTE | 2023-12-29 09:57 | XR ---
EXAMINATION TYPE: XR chest 2V DATE OF EXAM: 12/29/2023 9:48 AM CLINICAL INDICATION:Male, 78 years old with history of Z77.090 Asbestos exposure; [facility] COMPARISON: Chest radiographs from TECHNIQUE: XR chest 2V Frontal and lateral views of the chest. FINDINGS: Lungs/Pleura: There is no evidence of pleural effusion, focal consolidation, or pneumothorax. Pulmonary vascularity: Unremarkable. Heart/mediastinum: Cardiomediastinal silhouette is unremarkable. Musculoskeletal: No acute osseous pathology. Midline sternotomy wires are noted. Other findings: None Lines/Tubes: IMPRESSION: No acute cardiopulmonary disease/process.
== END | disposition home or self-care (01) ==
LOC: RADXRMAIN 09:39
PROVIDERS: ATTEND Family Medicine
DX: Z77.090 Contact with and (suspected) exposure to asbestos (principal)
CPT/HCPCS: 71046

== ENCOUNTER 2024-10-20 10:01 | Emergency (ER) | payer MEDICARE, BC ==
--- NOTE | 2024-10-20 10:20 | ED ---
GI Bleed HPI - General Chief complaint: GI Bleed Stated complaint: GI Bleed Time Seen by Provider: 10/20/24 10:19 Source: patient, RN notes reviewed, old records reviewed Mode of arrival: ambulatory Limitations: no limitations - History of Present Illness Initial comments: This is a 79-year-old male to the ER for evaluation today. Patient presents today for evaluation of blood in the stool he thinks it may be related to hemorrhoids which she has had in the past or some other rectal issue but is bleeding which was mild earlier in the week is more today. More pronounced no lightheadedness dizziness or weakness no blood thinners MD complaint: blood on toilet paper, blood streaked stool -: days(s) Quality: painless Consistency: intermittent Improves with: none Worsens with: none Context: hemorrhoids Associated Symptoms: denies other symptoms - Related Data Home Medications Medication Instructions Recorded Confirmed Aspirin 81 mg PO DAILY 04/26/19 10/20/24 Atorvastatin [Lipitor] 20 mg PO DAILY 04/26/19 10/20/24 Escitalopram [Lexapro] 10 mg PO DAILY 04/26/19 10/20/24 Metoprolol Succinate (ER) [Toprol 25 mg PO DAILY 11/08/20 10/20/24 XL] Ubidecarenone [Co Q-10] 200 mg PO DAILY 02/19/21 10/20/24 ALPRAZolam [Xanax] 0.125 mg PO DAILY PRN 10/20/24 10/20/24 Allergies Allergy/AdvReac Type Severity Reaction Status Date / Time Penicillins Allergy Unknown Verified 10/20/24 14:27 Childhood Review of Systems ROS Statement: Those systems with pertinent positive or pertinent negative responses have been documented in the HPI. ROS Other: All systems not noted in ROS Statement are negative. Past Medical History Past Medical History: Chest Pain / Angina, Hyperlipidemia, Hypertension Additional Past Medical History / Comment(s): hx leaky heart valve, hx. kidney stones History of Any Multi-Drug Resistant Organisms: None Reported Past Surgical History: Cardiac Valve Replacement, Heart Catheterization, Hernia Repair Additional Past Surgical History / Comment(s): cyst removed right wrist, repair umbilical hernia, lithotripsy, cataract removed left eye,mitral valve repair Past Anesthesia/Blood Transfusion Reactions: No Reported Reaction Past Psychological History: Anxiety Smoking Status: Never smoker Past Alcohol Use History: Occasional - Past Family History Mother Family Medical History: Cancer Additional Family Medical History / Comment(s): esophageal Father Family Medical History: Cancer Additional Family Medical History / Comment(s): asbestos General Exam Limitations: no limitations General appearance: alert, in no apparent distress Head exam: Present: atraumatic, normocephalic, normal inspection Eye exam: Present: normal appearance, PERRL, EOMI. Absent: scleral icterus, conjunctival injection, periorbital swelling ENT exam: Present: normal exam, mucous membranes moist Neck exam: Present: normal inspection. Absent: tenderness, meningismus, lymphadenopathy Respiratory exam: Present: normal lung sounds bilaterally. Absent: respiratory distress, wheezes, rales, rhonchi, stridor Cardiovascular Exam: Present: regular rate, normal rhythm, normal heart sounds. Absent: systolic murmur, diastolic murmur, rubs, gallop, clicks GI/Abdominal exam: Present: soft, normal bowel sounds. Absent: distended, tenderness, guarding, rebound, rigid Extremities exam: Present: normal inspection, full ROM, normal capillary refill. Absent: tenderness, pedal edema, joint swelling, calf tenderness Back exam: Present: normal inspection Neurological exam: Present: alert, oriented X3, CN II-XII intact Psychiatric exam: Present: normal affect, normal mood Skin exam: Present: warm, dry, intact, normal color. Absent: rash Course Vital Signs 10/20/24 10/20/24 10/20/24 10:07 10:55 11:20 Temperature 97.6 F Pulse Rate 64 61 Respiratory 20 17 17 Rate Blood Pressure 163/93 141/80 O2 Sat by Pulse 100 98 Oximetry 10/20/24 10/20/24 10/20/24 11:50 12:50 13:20 Temperature Pulse Rate 62 94 63 Respiratory 15 15 15 Rate Blood Pressure 141/80 150/85 O2 Sat by Pulse 98 97 98 Oximetry 10/20/24 10/20/24 14:00 15:01 Temperature 98.4 F Pulse Rate 63 Respiratory 17 Rate Blood Pressure 135/80 132/82 O2 Sat by Pulse 97 Oximetry - Reevaluation(s) Reevaluation #1: 10/20/24 10:23 Medical records reviewed Reevaluation #2: 10/20/24 13:02 No significant bloody bowel movement here in the ER Reevaluation #3: Patient informed of results and questions answered Reevaluation #4: Was pt. sent in by a medical professional or institution (KALIE Jackson, STABLE ATTENDANT, urgent care, hospital, or assisted...) When possible be specific @ -no Did you speak to anyone other than the patient for history (EMS, parent, family, police, friend...)? What history was obtained from this source @ -no Did you review nursing and triage notes (agree or disagree)? Why? @ -agree Are old charts reviewed (outside hosp., previous admission, EMS record, old EKG, old radiological studies, urgent care reports/EKG's, assisted records)? Report findings @ -yes Differential Diagnosis (chest pain, altered mental status, abdominal pain women, abdominal pain men, vaginal bleeding, weakness, fever, dyspnea, syncope, headache, dizziness, GI bleed, back pain, seizure, CVA, palpatations, mental health, musculoskeletal)? @ -prior EKG interpreted by me (3pts min.). @ -no X-rays interpreted by me (1pt min.). @ -no CT interpreted by me (1pt min.). @ -yes negative for acute disease U/S interpreted by me (1pt. min.). @ -no What testing was considered but not performed or refused? (CT, X-rays, U/S, labs)? Why? @ -none What meds were considered but not given or refused? Why? @ -none Did you discuss the management of the patient with other professionals (professionals i.e. KALIE Jackson, STABLE ATTENDANT, lab, RT, psych nurse, social insurance specialist, captain/check airman, teacher, home school liaison officer, case consultant)? Give summary @ -no Was smoking cessation discussed for >3mins.? @ -no Was critical care preformed (if so, how long)? @ -no Were there social determinants of health that impacted care today? How? (Homelessness, low income, unemployed, alcoholism, drug addiction, transportation, low edu. Level, literacy, decrease access to med. care, snf, re hab)? @ -none Was there de-escalation of care discussed even if they declined (Discuss DNR or withdrawal of care, Hospice)? DNR status @ -no What co-morbidities impacted this encounter? (DM, HTN, Smoking, COPD, CAD, Cancer, CVA, ARF, Chemo, Hep., AIDS, mental health diagnosis, sleep apnea, morbid obesity)? @ -none Was patient admitted / discharged? Hospital course, mention meds given and route, prescriptions, significant lab abnormalities, going to OR and other pertinent info. @ - 79 male to ER with colitis and a GI bleed no significant hemoglobin loss here in the ER. No significant bloody output here in the ER patient can be discharged home Discharge Undiagnosed new problem with uncertain prognosis? @ -no Drug Therapy requiring intensive monitoring for toxicity (Heparin, Nitro, Insu rey, Cardizem)? @ -no Were any procedures done? @ -no Diagnosis/symptom? @ -GI bleed colitis Acute, or Chronic, or Acute on Chronic? @ -Acute Uncomplicated (without systemic symptoms) or Complicated (systemic symptoms)? @ -Complicated Side effects of treatment? @ -no Exacerbation, Progression, or Severe Exacerbation? @ -exacerbation Poses a threat to life or bodily function? How? (Chest pain, USA, LA, pneumonia, PE, COPD, DKA, ARF, appy, cholecystitis, CVA, Diverticulitis, Homicidal, Suic idal, threat to staff... and all critical care pts) @ -yes extremes of age GI bleed Reevaluation #5: Differential GI Bleed: Esophageal varices, aortoenteric fistula, Viviana-Back, gastritis, peptic ulcer disease, diverticulosis, inflammatory bowel disease, hemorrhoids, fissure, colitis, malignancy, Meckel's diverticulum, this is not meant to be an all- inclusive list. Medical Decision Making - Medical Decision Making 79 male to ER with colitis and a GI bleed no significant hemoglobin loss here in the ER. No significant bloody output here in the ER patient can be discharged home - Lab Data Result diagrams: 10/20/24 13:43 10/20/24 10:45 Lab Results 10/20/24 10/20/24 10/20/24 Range/Units 10:45 10:45 10:45 WBC 6.3 (3.8-10.6) k/uL RBC 3.69 L (4.30-5.90) m/uL Hgb 11.6 L (13.0-17.5) gm/dL Hct 35.6 L (39.0-53.0) % MCV 96.4 (80.0-100.0) fL MCH 31.3 (25.0-35.0) pg MCHC 32.5 (31.0-37.0) g/dL RDW 14.5 (11.5-15.5) % Plt Count 162 (150-450) k/uL MPV 8.7 Neutrophils % (Manual) 71 % Band Neuts % (Manual) % Lymphocytes % (Manual) 20 % Monocytes % (Manual) 8 % Eosinophils % (Manual) 1 % Basophils % (Manual) % Metamyelocytes % % Neutrophils # (Manual) 4.47 (1.3-7.7) k/uL Lymphocytes # (Manual) 1.26 (1.0-4.8) k/uL Monocytes # (Manual) 0.50 (0-1.0) k/uL Eosinophils # (Manual) 0.06 (0-0.7) k/uL Basophils # (Manual) (0-0.2) k/uL Metamyelocytes # (Man) (0) k/uL Nucleated RBCs 0 (0-0) /100 WBC Manual Slide Review Performed RBC Morphology Hypochromasia Slight PT 10.6 (10.0-12.5) sec INR 1.0 (<1.2) APTT 24.5 (22.0-30.0) sec Sodium 135 L (137-145) mmol/L Potassium 4.8 (3.5-5.1) mmol/L Chloride 104 (98-107) mmol/L Carbon Dioxide 26 (22-30) mmol/L Anion Gap 5 mmol/L BUN 28 H (9-20) mg/dL Creatinine 0.97 (0.66-1.25) mg/dL Est GFR (CKD-EPI)AfAm 86 (>60 ml/min/1.73 sqM) Est GFR (CKD-EPI)NonAf 75 (>60 ml/min/1.73 sqM) Glucose 101 H (74-99) mg/dL Calcium 8.9 (8.4-10.2) mg/dL Total Bilirubin 0.5 (0.2-1.3) mg/dL AST 31 (17-59) U/L ALT 19 (4-49) U/L Alkaline Phosphatase 111 (38-126) U/L Troponin I (0.000-0.034) ng/mL Total Protein 7.3 (6.3-8.2) g/dL Albumin 4.4 (3.5-5.0) g/dL Lipase 142 (23-300) U/L Blood Type Blood Type Confirm Blood Type Recheck Bld Type Recheck Status Antibody Screen Spec Expiration Date 10/20/24 10/20/24 10/20/24 Range/Units 10:45 10:45 11:06 WBC (3.8-10.6) k/uL RBC (4.30-5.90) m/uL Hgb (13.0-17.5) gm/dL Hct (39.0-53.0) % MCV (80.0-100.0) fL MCH (25.0-35.0) pg MCHC (31.0-37.0) g/dL RDW (11.5-15.5) % Plt Count (150-450) k/uL MPV Neutrophils % (Manual) % Band Neuts % (Manual) % Lymphocytes % (Manual) % Monocytes % (Manual) % Eosinophils % (Manual) % Basophils % (Manual) % Metamyelocytes % % Neutrophils # (Manual) (1.3-7.7) k/uL Lymphocytes # (Manual) (1.0-4.8) k/uL Monocytes # (Manual) (0-1.0) k/uL Eosinophils # (Manual) (0-0.7) k/uL Basophils # (Manual) (0-0.2) k/uL Metamyelocytes # (Man) (0) k/uL Nucleated RBCs (0-0) /100 WBC Manual Slide Review RBC Morphology Hypochromasia PT (10.0-12.5) sec INR (<1.2) APTT (22.0-30.0) sec Sodium (137-145) mmol/L Potassium (3.5-5.1) mmol/L Chloride (98-107) mmol/L Carbon Dioxide (22-30) mmol/L Anion Gap mmol/L BUN (9-20) mg/dL Creatinine (0.66-1.25) mg/dL Est GFR (CKD-EPI)AfAm (>60 ml/min/1.73 sqM) Est GFR (CKD-EPI)NonAf (>60 ml/min/1.73 sqM) Glucose (74-99) mg/dL Calcium (8.4-10.2) mg/dL Total Bilirubin (0.2-1.3) mg/dL AST (17-59) U/L ALT (4-49) U/L Alkaline Phosphatase (38-126) U/L Troponin I <0.012 (0.000-0.034) ng/mL Total Protein (6.3-8.2) g/dL Albumin (3.5-5.0) g/dL Lipase (23-300) U/L Blood Type O Positive Blood Type Confirm O Positive Blood Type Recheck No Previous Record Bld Type Recheck Status CABO Indicated Antibody Screen NEGATIVE Spec Expiration Date 10/23/2024 - 234410/20/24 Range/Units 13:43 WBC 6.1 (3.8-10.6) k/uL RBC 3.40 L (4.30-5.90) m/uL Hgb 10.9 L (13.0-17.5) gm/dL Hct 32.5 L (39.0-53.0) % MCV 95.5 (80.0-100.0) fL MCH 32.1 (25.0-35.0) pg MCHC 33.6 (31.0-37.0) g/dL RDW 14.5 (11.5-15.5) % Plt Count 144 L (150-450) k/uL MPV 8.6 Neutrophils % (Manual) 62 % Band Neuts % (Manual) 1 % Lymphocytes % (Manual) 28 % Monocytes % (Manual) 7 % Eosinophils % (Manual) 2 % Basophils % (Manual) 1 % Metamyelocytes % 1 % Neutrophils # (Manual) 3.80 (1.3-7.7) k/uL Lymphocytes # (Manual) 1.71 (1.0-4.8) k/uL Monocytes # (Manual) 0.43 (0-1.0) k/uL Eosinophils # (Manual) 0.12 (0-0.7) k/uL Basophils # (Manual) 0.06 (0-0.2) k/uL Metamyelocytes # (Man) 0.06 H (0) k/uL Nucleated RBCs 0 (0-0) /100 WBC Manual Slide Review Performed RBC Morphology Normal Hypochromasia PT (10.0-12.5) sec INR (<1.2) APTT (22.0-30.0) sec Sodium (137-145) mmol/L Potassium (3.5-5.1) mmol/L Chloride (98-107) mmol/L Carbon Dioxide (22-30) mmol/L Anion Gap mmol/L BUN (9-20) mg/dL Creatinine (0.66-1.25) mg/dL Est GFR (CKD-EPI)AfAm (>60 ml/min/1.73 sqM) Est GFR (CKD-EPI)NonAf (>60 ml/min/1.73 sqM) Glucose (74-99) mg/dL Calcium (8.4-10.2) mg/dL Total Bilirubin (0.2-1.3) mg/dL AST (17-59) U/L ALT (4-49) U/L Alkaline Phosphatase (38-126) U/L Troponin I (0.000-0.034) ng/mL Total Protein (6.3-8.2) g/dL Albumin (3.5-5.0) g/dL Lipase (23-300) U/L Blood Type Blood Type Confirm Blood Type Recheck Bld Type Recheck Status Antibody Screen Spec Expiration Date - Radiology Data Radiology results: report reviewed (CT abdomen pelvis positive for colitis), image reviewed Disposition Clinical Impression: Lower gastrointestinal hemorrhage, Colitis Disposition: HOME SELF-CARE Condition: Good Instructions (If sedation given, give patient instructions): Gastrointestinal Bleeding (ED) Additional Instructions: Colitis concern for mass w GI bleed, hemoglobin unchanging Is patient prescribed a controlled substance at d/c from ED?: No Referrals: Hong Carey MD [Primary Care Provider] - 1-2 days Shayy Powell MD [STAFF PHYSICIAN] - 1-2 days Time of Disposition: 14:30
[2024-10-20] MEDS: SODIUM CHLORIDE 0.9% 1,000 ML IV STA (10:50)
[2024-10-20 11:11] LABS: ALT 19 U/L (4-49); AST 31 U/L (17-59); African American GFR (CKD) 86 (>60 ml/min/1.73 sqM); Albumin 4.4 g/dL (3.5-5.0); Alkaline Phosphatase 111 U/L (38-126); Anion Gap 5 mmol/L; Blood Urea Nitrogen 28 mg/dL (9-20); Calcium 8.9 mg/dL (8.4-10.2); Carbon Dioxide 26 mmol/L (22-30); Chloride 104 mmol/L (98-107); Glucose 101 mg/dL (74-99); Lipase 142 U/L (23-300); Non-African American GFR(CKD) 75 (>60 ml/min/1.73 sqM); Potassium 4.8 mmol/L (3.5-5.1); Sodium 135 mmol/L (137-145); Total Bilirubin 0.5 mg/dL (0.2-1.3); Total Protein 7.3 g/dL (6.3-8.2)
[2024-10-20 11:16] LABS: Partial Thromboplastin Time 24.5 sec (22.0-30.0); Prothrombin Time 10.6 sec (10.0-12.5)
[2024-10-20 11:23] LABS: HCT 35.6 % (39.0-53.0); HGB 11.6 gm/dL (13.0-17.5); Hypochromasia Slight; MCH 31.3 pg (25.0-35.0); MCHC 32.5 g/dL (31.0-37.0); MCV 96.4 fL (80.0-100.0); Mean Platelet Volume 8.7; Platelet Count 162 k/uL (150-450); RBC 3.69 m/uL (4.30-5.90); RDW 14.5 % (11.5-15.5); WBC 6.3 k/uL (3.8-10.6)
[2024-10-20 11:54] LABS: Eosinophils # (M) 0.06 k/uL (0-0.7); Lymphocytes # (M) 1.26 k/uL (1.0-4.8); Neutrophils # (M) 4.47 k/uL (1.3-7.7); Neutrophils % (M) 71 %; Nucleated Red Blood Cells 0 /100 WBC (0-0); Total Cells Counted 100
--- NOTE | 2024-10-20 13:39 | CT ---
EXAMINATION TYPE: CT abdomen pelvis w con CT DLP: 1171.5 mGycm, Automated exposure control for dose reduction was used. DATE OF EXAM: 10/20/2024 1:27 PM COMPARISON: CT abdomen pelvis 09/23/2018 CLINICAL INDICATION:Male, 79 years old with history of GIB; Abdominal pain, rectal bleeding, hx of re ctal pain/swelling. TECHNIQUE: Standard CT of the abdomen and pelvis following the administration of 100 cc of Isovue 3 00 IV contrast material. Coronal and sagittal reformats were performed. FINDINGS: LOWER CHEST: Minimal posterior dependent subsegmental atelectasis is noted. Median sternotomy wires. Mitral annulus valvular prosthesis. Small aortic valvular calcifications. No pericardial effusion. ABDOMEN LIVER: Unremarkable GALLBLADDER AND BILE DUCTS: Unremarkable. PANCREAS: Unremarkable. SPLEEN: Unremarkable. ADRENAL GLANDS: Unremarkable. KIDNEYS AND URETERS: No evidence of hydronephrosis. The kidneys enhance symmetrically. Subcentimeter right renal lower pole cortical cyst. Punctate nonobstructive bilateral renal calculi. Contrast is de monstrated within both collecting systems on the delayed phase. PELVIS BLADDER: Unremarkable REPRODUCTIVE: Prostate is enlarged in size measuring 5.9 cm in transverse dimension. ABDOMEN & PELVIS STOMACH AND BOWEL: Small hiatal hernia, duodenum is unremarkable. Redundant sigmoid colon. The append ix is within normal limits. Short segment circumferential wall thickening of the distal transverse co blayne (series 201, image 27). No surrounding inflammatory changes. No evidence of bowel obstruction. Th e rectum appears unremarkable. No hyperdensity identified within the bowel. PERITONEUM: No evidence of pneumoperitoneum or free fluid. VASCULATURE: Mild atherosclerotic calcifications are present throughout the abdominal aorta and its b ranches. No evidence of aortic aneurysm. Pelvic phleboliths. MUSCULOSKELETAL: No acute osseous abnormalities. Degenerative disc disease most pronounced at L5-S1. LYMPH NODES: No evidence for lymphadenopathy. SOFT TISSUE/ABDOMINAL WALL: Unremarkable IMPRESSION: 1. Short segment circumferential wall thickening of the distal transverse colon which may represent colitis with underlying neoplasm not excluded. Consider further evaluation with colonoscopy if not re cently performed. No hyperdensity identified within the visualized bowel to suggest bleed. 2. Nonobstructive bilateral punctate renal calculi. 3. Prostatomegaly. [facility], , 10/20/2024 1:37 PM
[2024-10-20 14:10] LABS: HCT 32.5 % (39.0-53.0); HGB 10.9 gm/dL (13.0-17.5); MCH 32.1 pg (25.0-35.0); MCHC 33.6 g/dL (31.0-37.0); MCV 95.5 fL (80.0-100.0); Mean Platelet Volume 8.6; Platelet Count 144 k/uL (150-450); RDW 14.5 % (11.5-15.5); WBC 6.1 k/uL (3.8-10.6)
[2024-10-20 14:13] VITALS: PULSE 63
[2024-10-20] MEDS: ONDANSETRON 4 MG/2 ML VIAL IVP STA (14:28)
[2024-10-20] MEDS: PANTOPRAZOLE 40 MG/10 ML VIAL IVP STA (14:28)
[2024-10-20 14:31] LABS: Band Neutrophils % 1 %; Basophils # (M) 0.06 k/uL (0-0.2); Eosinophils # (M) 0.12 k/uL (0-0.7); Lymphocytes # (M) 1.71 k/uL (1.0-4.8); Metamyelocytes # (M) 0.06 k/uL (0); Metamyelocytes % 1 %; Monocytes # (M) 0.43 k/uL (0-1.0); Neutrophils % (M) 62 %; Nucleated Red Blood Cells 0 /100 WBC (0-0); Total Cells Counted 200
[2024-10-20 14:32] LABS: RBC Morphology Normal
[2024-10-20 15:04] VITALS: BP 132/82; RESP 17; TEMP 98.4
== END 2024-10-20 15:19 | disposition home or self-care (01) ==
LOC: EC 10:01
DX: K52.9 Noninfective gastroenteritis and colitis, unspecified (principal); N20.0 Calculus of kidney; Z88.0 Allergy status to penicillin; Z95.2 Presence of prosthetic heart valve
CPT/HCPCS: 36415; 86900; 86901; 80053; 83690; 84484; 85025; 85610; 85730; 86850; 74177; 99285; 96360; 96361; Q9967

== ENCOUNTER 2024-11-04 13:46 | Emergency (ER) | payer MEDICARE, BC ==
[2024-11-04 13:56] VITALS: RESP 18
--- NOTE | 2024-11-04 15:08 | XR ---
EXAMINATION TYPE: XR KUB DATE OF EXAM: 11/04/2024 2:47 PM COMPARISON: CT abdomen/pelvis 1120 07/24/2024. CLINICAL INDICATION: Male, 79 years old with history of Abdominal pain/constipation; [facility] TECHNIQUE: One radiographic view of the abdomen was obtained. FINDINGS: The bowel gas pattern is nonspecific without dilated loops of small or large bowel. . Fecal material and gas are demonstrated throughout the colon and rectum. There is no evidence for organomegaly or pneumoperitoneum. The osseous structures are intact. No ab normal calcifications are present. Partially visualized median sternotomy wires with prosthetic valve . IMPRESSION: Nonspecific bowel gas pattern without radiographic evidence for acute process. [facility], , 11/04/2024 3:05 PM
--- NOTE | 2024-11-04 15:40 | ED ---
General Adult HPI - General Chief complaint: Abdominal Pain Stated complaint: Constipation Time Seen by Provider: 11/04/24 14:00 Source: patient, family, RN notes reviewed, old records reviewed Mode of arrival: ambulatory Limitations: no limitations - History of Present Illness Initial comments: 79-year-old male who presents to the emergency department stating that for the last 2 weeks has not been having any bowel movements. Patient states he has some lower abdominal pressure and feels as though he needs to go but cannot go. Patient denies any fever chills. Patient has any vomiting. Patient denies any new medicines. Patient states he normally does not have a problem with going to the bathroom - Related Data Home Medications Medication Instructions Recorded Confirmed Aspirin 81 mg PO DAILY 04/26/19 10/20/24 Atorvastatin [Lipitor] 20 mg PO DAILY 04/26/19 10/20/24 Escitalopram [Lexapro] 10 mg PO DAILY 04/26/19 10/20/24 Metoprolol Succinate (ER) [Toprol 25 mg PO DAILY 11/08/20 10/20/24 XL] Ubidecarenone [Co Q-10] 200 mg PO DAILY 02/19/21 10/20/24 ALPRAZolam [Xanax] 0.125 mg PO DAILY PRN 10/20/24 10/20/24 Allergies Allergy/AdvReac Type Severity Reaction Status Date / Time Penicillins Allergy Unknown Verified 11/04/24 13:52 Childhood Review of Systems ROS Statement: Those systems with pertinent positive or pertinent negative responses have been documented in the HPI. ROS Other: All systems not noted in ROS Statement are negative. Past Medical History Past Medical History: Chest Pain / Angina, Hyperlipidemia, Hypertension Additional Past Medical History / Comment(s): hx leaky heart valve, hx. kidney stones History of Any Multi-Drug Resistant Organisms: None Reported Past Surgical History: Cardiac Valve Replacement, Heart Catheterization, Hernia Repair Additional Past Surgical History / Comment(s): cyst removed right wrist, repair umbilical hernia, lithotripsy, cataract removed left eye,mitral valve repair Past Anesthesia/Blood Transfusion Reactions: No Reported Reaction Past Psychological History: Anxiety Smoking Status: Never smoker Past Alcohol Use History: Occasional - Past Family History Mother Family Medical History: Cancer Additional Family Medical History / Comment(s): esophageal Father Family Medical History: Cancer Additional Family Medical History / Comment(s): asbestos General Exam - General Exam Comments Initial Comments: GENERAL: Patient is well-developed and well-nourished. Patient is nontoxic and well- hydrated and is in mild distress. ENT: Neck is soft and supple. No significant lymphadenopathy is noted. Oropharynx is clear. Moist mucous membranes. Neck has full range of motion without eliciting any pain. EYES: The sclera were anicteric and conjunctiva were pink and moist. Extraocular movements were intact and pupils were equal round and reactive to light. Eyelids were unremarkable. PULMONARY: Unlabored respirations. Good breath sounds bilaterally. No audible rales rho nchi or wheezing was noted. CARDIOVASCULAR: There is a regular rate and rhythm without any murmurs gallops or rubs. ABDOMEN: Soft and nontender with normal bowel sounds. No palpable organomegaly was noted. There is no palpable pulsatile mass. SKIN: Skin is clear with no lesions or rashes and otherwise unremarkable. NEUROLOGIC: Patient is alert and oriented x3. Cranial nerves II through XII are grossly intact. Motor and sensory are also intact. Normal speech, volume and content. Symmetrical smile. MUSCULOSKELETAL: Normal extremities with adequate strength and full range of motion. No lower extremity swelling or edema. No calf tenderness. PSYCHIATRIC: Normal psychiatric evaluation. Limitations: no limitations Course Vital Signs 11/04/24 13:53 Temperature 97.8 F Pulse Rate 95 Respiratory 18 Rate Blood Pressure 113/76 O2 Sat by Pulse 100 Oximetry Medical Decision Making - Medical Decision Making Was pt. sent in by a medical professional or institution ([facility], STRAIGHTENER, urgent care, hospital, or halfway...) When possible be specific @ -No Did you speak to anyone other than the patient for history (EMS, parent, family, police, friend...)? What history was obtained from this source @ -No Did you review nursing and triage notes (agree or disagree)? Why? @ -I reviewed and agree with nursing and triage notes Were old charts reviewed (outside hosp., previous admission, EMS record, old EKG, old radiological studies, urgent care reports/EKG's, halfway records)? Report findings @ -No old charts were reviewed Differential Diagnosis? @ -Differential Abdominal Pain Men: Appendicitis, cholecystitis, diverticulosis, ischemic bowel, pancreatitis, hepatitis, UTI, gastroenteritis, AAA, incarcerated hernia, bowel obstruction, constipation, inflammatory bowel, hepatitis, peptic ulcer disease, splenic infarction, perforated viscus, testicular torsion, this is not meant to be an all-inclusive list EKG interpreted by me (3pts min.). @ -As above X-rays interpreted by me (1pt min.). @ -None done CT interpreted by me (1pt min.). @ -None done U/S interpreted by me (1pt. min.). @ -None done What testing was considered but not performed or refused? (CT, X-rays, U/S, labs)? Why? @ -None What meds were considered but not given or refused? Why? @ -None Did you discuss the management of the patient with other professionals (professionals i.e. , PA, STRAIGHTENER, lab, RT, psych nurse, social media assistant, bung dropper, teacher, food safety officer, manager case management)? Give summary @ -No Was smoking cessation discussed for >3mins.? @ -No Was critical care preformed (if so, how long)? @ -No Were there social determinants of health that impacted care today? How? (Homelessness, low income, unemployed, alcoholism, drug addiction, transportation, low edu. Level, literacy, decrease access to med. care, half-way, rehab)? @ -No Was there de-escalation of care discussed even if they declined (Discuss DNR or withdrawal of care, Hospice)? DNR status @ -No What co-morbidities impacted this encounter? (DM, HTN, Smoking, COPD, CAD, Cancer, CVA, ARF, Chemo, Hep., AIDS, mental health diagnosis, sleep apnea, morbid obesity)? @ -None Was patient admitted / discharged? Hospital course, mention meds given and route, prescriptions, significant lab abnormalities, going to OR and other pertinent info. @ -Patient was given a milk and molasses enema in the emergency department had great success and was feeling considerably better. Undiagnosed new problem with uncertain prognosis? @ -No Drug Therapy requiring intensive monitoring for toxicity (Heparin, Nitro, Insulin, Cardizem)? @ -No Were any procedures done? @ -No Diagnosis/symptom? @ -Constipation Acute, or Chronic, or Acute on Chronic? @ -Acute Uncomplicated (without systemic symptoms) or Complicated (systemic symptoms)? @ -Uncomplicated Side effects of treatment? @ -No Exacerbation, Progression, or Severe Exacerbation? @ -No Poses a threat to life or bodily function? How? (Chest pain, [place], [place], pneumonia, PE, COPD, DKA, ARF, appy, cholecystitis, CVA, Diverticulitis, Homicidal, Suicidal, threat to staff... and all critical care pts) @ -No Disposition Clinical Impression: Constipation Disposition: HOME SELF-CARE Condition: Good Instructions (If sedation given, give patient instructions): Constipation (ED), High Fiber Diet (ED) Is patient prescribed a controlled substance at d/c from ED?: No Referrals: Hong Carey MD [Primary Care Provider] - 1-2 days Time of Disposition: 16:33
[2024-11-04] MEDS: TOPICAL SKIN ADHESIVE 1 EACH AMP TOPICAL ONE (15:44)
[2024-11-04 16:53] VITALS: BP 154/82; PULSE 66; TEMP 98.1
== END 2024-11-04 16:53 | disposition home or self-care (01) ==
LOC: EC 13:46
DX: K59.00 Constipation, unspecified (principal); Z88.0 Allergy status to penicillin
CPT/HCPCS: 74018; 99284

== ENCOUNTER → 2024-12-08 | Outpatient (CLI) | payer MEDICARE, BC ==
[2024-12-08 10:07] LABS: African American GFR (CKD) 74 (>60 ml/min/1.73 sqM); Blood Urea Nitrogen 22 mg/dL (9-20); Non-African American GFR(CKD) 64 (>60 ml/min/1.73 sqM)
[2024-12-08 16:52] LABS: HCT 29.6 % (39.6-50.0); HGB 8.7 g/dL (13.0-17.0); MCH 27.2 pg (27.0-32.0); MCHC 29.4 g/dL (32.0-37.0); MCV 92.5 FL (80.0-97.0); Mean Platelet Volume 11.7 FL (9.5-12.2); NRBC Per 100 WBC 0 X 10*3/uL (0.00-0.01); Platelet Count 197 X 10*3/uL (140-440)
--- NOTE | 2024-12-08 22:48 | CT ---
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 Reconstructed images are reviewed on [email or web address] computer in the coronal plane. Contrast used:100ml mL of Isovue 300 with IV Contrast, (none if empty) Oral contrast used: (none if empty) CT DLP: 406.80 mGycm, Automated exposure control for dose reduction was used. FINDINGS: Large thyroid visualized is normal. No suspicious lung nodules or focal infiltrates are present. Minimal pleural plaque along the posteri or medial left lower lung field. No enlarged mediastinal or hilar adenopathy is evident. The ascending aorta diameter at the level o f the main pulmonary artery is 3.7 cm. The main pulmonary artery diameter at the bifurcation is 2.[address] sections are obtained through the upper abdomen. Abdomen is essentially unremarkable. IMPRESSION: 1. No suspicious changes to suggest metastatic neoplasm. [facility], , 12/08/2024 10:45 PM
== END | disposition home or self-care (01) ==
LOC: RADCTMAIN 09:23
PROVIDERS: ATTEND Surgery
DX: C18.9 Malignant neoplasm of colon, unspecified (principal)
CPT/HCPCS: 82378; 82565; 84520; 85027; 71260; 36415; Q9967